=== PATIENT | female | born 1945 | race Caucasian/White ===

== ENCOUNTER 2019-07-12 10:17 | Outpatient (CLI) | payer MEDICARE, OTHER, SELFPAY ==
--- NOTE | 2019-07-12 10:15 | USCV_ITS ---
Khari Calvillo Age: 74 Gender: F : 1945 Exam Date: 07/12/2019 10:27 Ordering Phys: Jocelynn Zimmer Technologist: Mirela Horner Exam Location: [facility] – [place] Indication: fatigue BP: 136 / 62 HR: 61 Rhythm: Sinus Technical Quality: Adequate MEASUREMENTS (Male / Female) Normal Values 2D ECHO LV Diastolic Diameter PLAX 4.3 cm 4.2 - 5.9 / 3.9 - 5.3 cm LV Systolic Diameter PLAX 2.7 cm LV Chamber Size 2.2 cm IVS Diastolic Thickness 1.2 cm 0.6 - 1.0 / 0.6 - 0.9 cm IVS Systolic Thickness 1.5 cm LVPW Diastolic Thickness 1.8 cm 0.6 - 1.0 / 0.6 - 0.9 cm LVPW Systolic Thickness 1.9 cm RV Chamber Size 2.6 cm LVOT Diameter 2.1 cm LV Ejection Fraction 2D Teich 66.7 % LV Ejection Fraction MOD 2C 66.8 % LV Ejection Fraction 2C AL 70.1 % LA Diameter 4.2 cm LA Width 2.0 cm LA Height 4.8 cm RA Width 2.6 cm RA Height 3.7 cm Aorta at Sinotubular Diameter 2.2 cm M-MODE LV Diastolic Diameter MM 5.4 cm 4.2 - 5.9 / 3.9 - 5.3 cm LV Systolic Diameter MM 3.6 cm LV Ejection Fraction MM Teich 60.7 % IVS Diastolic Thickness MM 0.7 cm 0.6 - 1.0 / 0.6 - 0.9 cm IVS Systolic Thickness MM 0.9 cm LVPW Diastolic Thickness MM 0.7 cm 0.6 - 1.0 / 0.6 - 0.9 cm LVPW Systolic Thickness MM 1.3 cm Aortic Annulus Diameter 3.2 cm LA Ao Ratio MM 1.3 MV E Point Septal Separation 0.4 cm DOPPLER AV Peak Velocity 135.0 cm/s LVOT Peak Velocity 102.0 cm/s AV Area Cont Eq vti 2.5 cm squared AV Area Cont Eq pk 2.5 cm squared MV Area PHT 3.1 cm squared Mitral E to A Ratio 1.1 MV E' Velocity 10.0 cm/s Mitral E to MV E' Ratio 8.8 Mitral E to LV E' Lateral Ratio 8.9 Mitral E to LV E' Septal Ratio 8.6 TR Peak Velocity 339.0 cm/s TR Peak Gradient 46.0 mmHg TV Peak E Velocity 51.0 cm/s Right Atrial Pressure 3.0 mmHg Pulmonary Artery Systolic Pressu 49.0 mmHg PV Peak Velocity 51.0 cm/s RV Acceleration Time 0.2 s RV Ejection Time 0.4 s RV AcT/ET 0.5 FINDINGS Left Ventricle Normal left ventricular cavity size. Normal left ventricular systolic function. No regional wall motion abnormalities. Left ventricular ejection fraction is estimated at 60 %. Grade II/IV diastolic dysfunction, moderately elevated filling pressures. Right Ventricle The right ventricle is normal in size and function. Right Atrium The right atrium is normal in size. Left Atrium The left atrium is normal in size. Mitral Valve Moderately thickened mitral valve. No mitral valve stenosis. Aortic Valve Mild aortic valve calcification. No aortic valve stenosis. No aortic valve regurgitation. Tricuspid Valve Structurally normal tricuspid valve without significant stenosis or regurgitation. Pulmonary artery systolic pressure is normal. Pulmonic Valve Structurally normal pulmonic valve without significant stenosis. There is no pulmonic regurgitation. Pericardium Normal pericardium without effusion. Aorta Normal ascending aorta dimension. CONCLUSIONS 1-Normal left ventricular cavity size. Normal left ventricular systolic function. No regional wall motion abnormalities. Left ventricular ejection fraction is estimated at 60 %. Grade II/IV diastolic dysfunction, moderately elevated filling pressures. 2-There is no pericardial effusion. 3-Pulmonary artery systolic pressure is within normal limits. 4-No significant valve abnormalities. 5-Right atrial pressure is around 5 mm of mercury. 6-No significant change since the prior echocardiogram study of 07/01/2017. Hayder Alberts MD (Electronically Signed) Final Date: 12 July 2019 13:47 S
--- NOTE | 2019-07-12 11:00 | USCV_ITS ---
KarliPreciouse Age: 74 Gender: F : 1945 Exam Date: 07/12/2019 10:41 Ordering Phys: Jocelynn Zimmer Technologist: Mirela Horner Exam Location: [facility] [place] Indication: blurring vision Risk Factors: Previous Vascular Surgery: Right Brachial BP: / Left Brachial BP: / Right Left Velocity (cm/s) Spectral Plaque Velocity (cm/s) Spectral Plaque Syst/Diast Broadening Syst/Diast Broadening 97.00/ 17.60 Prox CCA 42.60 / 8.30 79.40/ 17.60 Mid CCA 75.40 / 15.10 56.70/ 15.40 Distal CCA 63.30 / 21.10 41.90/ 15.40 Prox ICA 37.00 / 19.30 55.10/ 16.50 Mid ICA 67.20 / 24.80 78.10/ 33.60 Distal ICA 58.50 / 24.60 76.30 ECA 72.30 0.98 ICA/CCA 0.89 Antegrade Vertebral Antegrade 21.30/ 7.70 cm/s 18.00/ 7.20 cm/s Tri Subclavian Tri 66.30 46.80 FINDINGS Comparison:. 11/04/12. No significant elevation of systolic or diastolic velocities. Waveforms are normal. No significant amount of calcified plaque or intimal thickening identified. CONCLUSIONS No interval change in stenosis since prior exam. Normal carotid doppler ultrasound. Dr. Britany Navarro DO (Electronically Signed) Final Date: 12 July 2019 12:15 S
== END 2019-07-12 10:18 | disposition home or self-care (01) ==
LOC: RAD 10:21
PROVIDERS: Family Provider Family Medicine; PCP Family Medicine; Visit Provider Nurse Practitioner Family
DX: R53.83 Other fatigue (principal); R53.1 Weakness; I10 Essential (primary) hypertension; H53.8 Other visual disturbances; G44.52 New daily persistent headache (NDPH); I65.23 Occlusion and stenosis of bilateral carotid arteries
CPT/HCPCS: 93306; 93880

== ENCOUNTER → 2019-09-29 08:44 | Outpatient (BNVA) | payer MEDICARE, OTHER, SELFPAY | PROVIDERS: Family Provider Family Medicine; PCP Family Medicine; Visit Provider Nurse Practitioner Family | DX: N39.0 Urinary tract infection, site not specified (principal); N39.46 Mixed incontinence | CPT/HCPCS: 81001 ==

== ENCOUNTER 2020-05-25 14:36 | Outpatient (CLI) | payer MEDICARE, OTHER, SELFPAY ==
--- NOTE | 2020-05-25 15:00 | USCV_ITS ---
Khari Calvillo Age: 75 Gender: F : 1945 Exam Date: 05/25/2020 14:47 Ordering Phys: Hayder Alberts MD ([email or web address]) Technologist: Randell Sprague Exam Location: [facility] – [place] Indication: PVD RIGHT LEFT Brachial 132.00 mmHg Brachial 132.00 mmHg Pressure (mmHg) Waveform Pressure (mmHg) Waveform 164.00 Above Knee 162.00 181.00 Below Knee 180.00 188.00 GRAIN ELEVATOR CLERK 173.00 151.00 DPA 138.00 1.42 Ankle/Brachial Index 1.31 103.00 Pre-Exercise Toe Pressure 135.00 0.78 Pre-Exercise Toe/Brachial Index 1.02 FINDINGS Normal resting ABIs bilaterally Normal resting TBIs bilaterally Near normal PVR waveforms CONCLUSIONS No significant arterial obstruction, based on the above finding Dr Kerri Whiteside MD FAC (Electronically Signed) Final Date: 25 May 2020 17:31 S
== END 2020-05-25 14:37 | disposition home or self-care (01) ==
LOC: US 14:36
PROVIDERS: PCP Family Medicine; Visit Provider Internal Medicine Cardiovascular Disease
DX: I73.9 Peripheral vascular disease, unspecified (principal)
CPT/HCPCS: 93923

== ENCOUNTER 2020-09-03 11:41 | Emergency (ER) | payer MEDICARE, OTHER, SELFPAY ==
[2020-09-03 12:17] VITALS: BP 166/83; PULSE 101; RESP 18; TEMP 36.8; O2SAT 94; BMI 33.4
--- NOTE | 2020-09-03 12:25 | XRR_ITS ---
PROCEDURE INFORMATION: Exam: XR Right Ankle Exam date and time: 09/03/2020 12:25 PM Age: 75 years old Clinical indication: Injury or trauma; Fall; Blunt trauma; Ankle; Right TECHNIQUE: Imaging protocol: XR Right ankle. Views: 3 or more views. COMPARISON: No relevant prior studies available. FINDINGS: Bones/joints: There is a fracture of the distal right fibula. No tibial fracture is identified. No dislocation. There is osteopenia. Soft tissues: Normal. XR/XR ankle RT min 3V* [id number] IMPRESSION: There is a fracture of the distal right fibula.
--- NOTE | 2020-09-03 12:53 | ED_ITS ---
HPI - Extremity Problem General: Chief complaint: Extremity Injury, Lower Stated complaint: fall/right leg injury Time Seen by Provider: 09/03/20 12:40 History of Present Illness: HPI Narrative: Patient fell yesterday and woke up with pain in her right calf area and discoloration to her ankle area and foot. Complaint: extremity pain Onset (ago): day(s) Pain Consistency: constant Location: right and lower extremity Severity scale (1-10): 3 Quality: aching Radiation: proximal and distal Relieving factors: immobilization Exacerbating factors: weight bearing Associated symptoms: Reports no associated symptoms; Deny chest pain, fever(s) or rash Review of Systems Const: Denies: fever(s), chills or body aches Eyes: Denies: change in vision or blurry vision ENMT: Denies: throat pain or nasal congestion Card: Denies: chest pain or dyspnea on exertion Resp: Denies: dyspnea, productive cough or non-productive cough GI: Denies: abdominal pain, nausea or vomiting Musc: Reports: extremity pain (Patient tripped going up stairs yesterday and sustained injury to her right) and limited range of motion Skin/Breast: Denies: rash Neuro: Denies: headache(s) Psych: Denies: anxiety or depression Blayne/Lymph: Denies: easy bruising PFSH ED PFSH: Medical History (Updated 02/22/20 @ 18:49 by Hayder Alberts MD) Claudication HTN (hypertension) Mixed incontinence Osteoporosis Polyuria PVCs (premature ventricular contractions) Reactive airway disease Recurrent UTI Surgical History S/P hysterectomy S/P shoulder surgery Family History Other Cancer Diabetes Social History Smoking and tobacco status: never smoked Alcohol intake: never Marital status: Current occupational status: retired History of recent travel: No Physical Exam Const: COMMON NORMALS: no acute distress, average body habitus and patient oriented x3 HENMT: COMMON NORMALS: normocephalic HEAD & SCALP: normal to inspection and normocephalic FACE & SINUS: normal facial exam Eye: COMMON NORMALS: conjunctivae normal GENERAL EYE: appearance normal, both eyes and all related structures CONJUNCTIVA: Yes conjunctivae normal Neck/C-Spine: COMMON NORMALS: no JVD Chest: COMMONS NORMALS: normal inspection of the chest Resp: COMMON NORMALS: normal respiratory effort Cardio: COMMON NORMALS: no JVD GI: COMMON NORMALS: Normal to inspection, nondistended, normoactive bowel sounds present Extremity: RIGHT LOWER EXTREMITY: Yes lower leg (Pain mid calf swelling and discoloration to the right foot no tenderness) Right lower leg: Yes neurovascular exam (Intact) Neuro: COMMON NORMALS: patient oriented x3 Course Vital Signs: Vital signs: Vital Signs Temperature 98.3 F 09/03/20 12:17 Pulse Rate 101 H 09/03/20 12:17 Respiratory Rate 18 09/03/20 12:17 Blood Pressure 166/83 09/03/20 12:17 Pulse Oximetry 94 09/03/20 12:17 Discharge Plan Discharge Prescriptions: No Action atorvastatin 10 mg tablet 10 mg PO DAILY RF: 0 diphenhydramine HCl [Benadryl] 25 mg capsule 25 mg PO TID PRNRF: 0 vitamin E (dl, acetate) 400 unit capsule 400 unit PO DAILY RF: 0 ascorbic acid (vitamin C) 1,000 mg tablet 1,000 mg PO DAILY RF: 0 Bangs Oil 1,000 mg capsule 1 cap PO DAILY RF: 0 Lactobacillus acidophilus [Acidophilus] Capsule 10 mg PO DAILY RF: 0 carica papaya [Papaya Enzyme] Tablet 1 tab PO DAILY RF: 0 naproxen sodium [Aleve] 220 mg tablet 220 mg PO BID PRNRF: 0 acetaminophen [Tylenol Extra Strength] 500 mg tablet 500 mg PO Q6H PRNRF: 0 aspirin [Adult Low Dose Aspirin] 81 mg tablet,delayed release (DR/EC) 81 mg PO DAILY RF: 0 metoprolol succinate 50 mg tablet extended release 24 hr 100 mg PO DAILY RF: 0 omeprazole 20 mg capsule,delayed release(DR/EC) 40 mg PO DAILY RF: 0 escitalopram oxalate 10 mg tablet 5 mg PO DAILY RF: 0 multivitamin Tablet 1 tab PO DAILY RF: 0 verapamil 100 mg capsule, [address] 100 mg PO DAILY Qty: 90 RF: 3 losartan 100 mg tablet 150 mg PO DAILY 90 Days Qty: 90 RF: 3 oxybutynin chloride 15 mg tablet extended release 24hr 15 mg PO DAILY Qty: 30 RF: 12 ciprofloxacin HCl [Cipro] 500 mg tablet 500 mg PO BID Qty: 60 RF: 1 Coding Level of Care Code ED Community Health Advisor for Vianca Donahue
--- NOTE | 2020-09-04 08:08 | DCPLANNER ---
corporate security manager had message to schedule a follow up appointment scheduled for patient with ortho. corporate security manager called the ortho clinic, spoke with Eneida, gave clinic patients information to clinic. corporate security manager was told that patients information would be printed and reviewed. Clinic will call patient with appointment information.
--- NOTE | 2020-09-22 07:27 | DCPLANNER ---
Patient had a follow up appointment scheduled for 09.13.[address] Mcdowell at [facility] - patient did attend appointment.
== END 2020-09-03 14:10 | disposition home or self-care (01) ==
PROVIDERS: Emergency Provider Nurse Practitioner Family; PCP Family Medicine
DX: M79.604 Pain in right leg (principal); Z79.82 Long term (current) use of aspirin; I10 Essential (primary) hypertension
CPT/HCPCS: 29515; 73610; 99283; E0114

== ENCOUNTER → 2020-09-13 10:10 | Outpatient (BNVA) | payer MEDICARE, OTHER, SELFPAY | PROVIDERS: PCP Family Medicine; Referring Provider Nurse Practitioner Family; Visit Provider Specialist | DX: S82.839A Other fracture of upper and lower end of unspecified fibula, initial encounter for closed fracture (principal); X58.XXXA Exposure to other specified factors, initial encounter; Z46.89 Encounter for fitting and adjustment of other specified devices; S82.51XD Displaced fracture of medial malleolus of right tibia, subsequent encounter for closed fracture with routine healing; X58.XXXD Exposure to other specified factors, subsequent encounter | CPT/HCPCS: 73610; 73630; 97760; L4361 ==

== ENCOUNTER 2020-09-13 15:40 | Outpatient (CLI) | payer MEDICARE, OTHER, SELFPAY | END 2020-09-13 15:41 | disposition home or self-care (01) | LOC: SPT 15:42 | PROVIDERS: PCP Family Medicine; Visit Provider Specialist | DX: Z46.89 Encounter for fitting and adjustment of other specified devices (principal); S82.51XD Displaced fracture of medial malleolus of right tibia, subsequent encounter for closed fracture with routine healing; X58.XXXD Exposure to other specified factors, subsequent encounter | CPT/HCPCS: 97760; L4361 ==

== ENCOUNTER → 2020-09-28 08:26 | Outpatient (BNVA) | payer MEDICARE, OTHER, SELFPAY | PROVIDERS: PCP Family Medicine; Visit Provider Specialist | DX: S82.839A Other fracture of upper and lower end of unspecified fibula, initial encounter for closed fracture (principal); S82.53XA Displaced fracture of medial malleolus of unspecified tibia, initial encounter for closed fracture; S82.454A Nondisplaced comminuted fracture of shaft of right fibula, initial encounter for closed fracture; S82.54XA Nondisplaced fracture of medial malleolus of right tibia, initial encounter for closed fracture; S82.409A Unspecified fracture of shaft of unspecified fibula, initial encounter for closed fracture; S82.209A Unspecified fracture of shaft of unspecified tibia, initial encounter for closed fracture; X58.XXXA Exposure to other specified factors, initial encounter | CPT/HCPCS: 73610; 73630 ==

== ENCOUNTER → 2020-10-16 14:53 | Outpatient (BNVA) | payer MEDICARE, OTHER, SELFPAY | PROVIDERS: PCP Family Medicine; Visit Provider Specialist | DX: S82.454A Nondisplaced comminuted fracture of shaft of right fibula, initial encounter for closed fracture (principal); X58.XXXA Exposure to other specified factors, initial encounter | CPT/HCPCS: 73610 ==

== ENCOUNTER → 2020-11-15 15:13 | Outpatient (BNVA) | payer MEDICARE, OTHER, SELFPAY | PROVIDERS: PCP Family Medicine; Visit Provider Urology | DX: N39.0 Urinary tract infection, site not specified (principal) | CPT/HCPCS: 81003 ==

== ENCOUNTER → 2021-02-12 12:11 | Outpatient (BNVA) | payer MEDICARE, OTHER, SELFPAY | PROVIDERS: PCP Family Medicine; Visit Provider Nurse Practitioner Family | DX: Z20.822 Contact with and (suspected) exposure to COVID-19 (principal) | CPT/HCPCS: 87635 ==

== ENCOUNTER → 2022-01-07 14:03 | Outpatient (BNVA) | payer MEDICARE, OTHER, SELFPAY | PROVIDERS: PCP Family Medicine; Visit Provider Internal Medicine Cardiovascular Disease | DX: I10 Essential (primary) hypertension (principal); I49.3 Ventricular premature depolarization; M79.606 Pain in leg, unspecified; R53.83 Other fatigue | CPT/HCPCS: 93005; 93242; 99213; 99214 ==

== ENCOUNTER 2022-02-22 09:00 | Outpatient (CLI) | payer MEDICARE, OTHER, SELFPAY ==
--- NOTE | 2022-02-22 09:30 | USCV_ITS ---
Khari Calvillo Age: 77 Gender: F : 1945 Exam Date: 02/22/2022 09:29 Ordering Phys: Kerri Whiteside MD ([email or web address]) Technologist: CT Exam Location: [facility] [place] Indication: HISTORY: PROCEDURES: Bilateral duplex Venous Insufficiency study of the Deep and Superficial systems was carried out according to normal protocol with the patient in supine positon for deep system and dependent position for the superficial system. FINDINGS: Reflux noted in rt gsv and left gsv. On the left it is only identified in the prx/mid calf The veins were found to be easily compressible with spontaneous blood flow. Non pulsatile flow pattern. CONCLUSIONS 1. Significant venous reflux of greater than 500 ms were noted at the proximal, mid, distal and below-knee saphenous vein segments. However these venous segments were found to be very superficial except the proximal and mid saphenous vein segments. 2. On the left side, Significant venous reflux of greater than 500 ms was noted at the below-knee segment of the greater saphenous vein. However the venous segment was found to be less than 1 cm deep from the surface 3. No DVT was noted. 4. No significant deep venous reflux were noted Dr Kerri Whiteside MD [facility] (Electronically Signed) Final Date: 26 February 2022 21:13 S
== END 2022-02-22 09:01 | disposition home or self-care (01) ==
LOC: RAD 09:02
PROVIDERS: PCP Family Medicine; Visit Provider Internal Medicine Cardiovascular Disease
DX: I87.2 Venous insufficiency (chronic) (peripheral) (principal); M79.606 Pain in leg, unspecified; M79.671 Pain in right foot
CPT/HCPCS: 93970

== ENCOUNTER → 2022-07-16 15:14 | Outpatient (BNVA) | payer MEDICARE, OTHER, SELFPAY | PROVIDERS: PCP Family Medicine; Visit Provider Internal Medicine Cardiovascular Disease | DX: R07.9 Chest pain, unspecified (principal); I10 Essential (primary) hypertension; I49.3 Ventricular premature depolarization; E78.5 Hyperlipidemia, unspecified; Z79.82 Long term (current) use of aspirin | CPT/HCPCS: 99214 ==

== ENCOUNTER → 2023-01-16 09:48 | Outpatient (BNVA) | payer MEDICARE, OTHER, SELFPAY | PROVIDERS: PCP Family Medicine; Visit Provider Internal Medicine Cardiovascular Disease | DX: I10 Essential (primary) hypertension (principal); I49.3 Ventricular premature depolarization; E78.5 Hyperlipidemia, unspecified; I87.2 Venous insufficiency (chronic) (peripheral) | CPT/HCPCS: 99214 ==

== ENCOUNTER → 2023-09-16 09:58 | Outpatient (BNVA) | payer MEDICARE, OTHER, SELFPAY | PROVIDERS: PCP Family Medicine; Visit Provider Specialist | DX: R20.0 Anesthesia of skin (principal); R20.2 Paresthesia of skin; G56.03 Carpal tunnel syndrome, bilateral upper limbs | CPT/HCPCS: 95910 ==

== ENCOUNTER → 2023-11-18 15:12 | Outpatient (BNVA) | payer MEDICARE, OTHER, SELFPAY | PROVIDERS: PCP Family Medicine; Visit Provider Internal Medicine Cardiovascular Disease | DX: R07.9 Chest pain, unspecified (principal); I10 Essential (primary) hypertension; I49.3 Ventricular premature depolarization; E78.5 Hyperlipidemia, unspecified; I87.2 Venous insufficiency (chronic) (peripheral); Z98.61 Coronary angioplasty status | CPT/HCPCS: 93005; 99214 ==

== ENCOUNTER 2023-12-19 09:24 | Outpatient (CLI) | payer MEDICARE, OTHER, SELFPAY ==
[2023-12-19 09:51] VITALS: BMI 35.7
--- NOTE | 2023-12-19 10:02 | ECG_ITS ---
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 Interpretive Statements PROCEDURE: At the baseline, the EKG revealed normal sinus rhythm with a normal ST Ts. The baseline heart was 63 bpm with a blood pressue of 154/84 mm of Hg Lexiscan was infused over a period of 20 seconds. A total of 0.4 milligrams of Lexiscan was infused. The stress phase was continued for a total of 5 minutes. Heart rate at the end of the stress phase was 89 bpm with a blood pressure 145/70 mm of Hg. The EKG at the peak infusion revealed no significant changes. Sestamibi was injected 20 seconds after the Lexiscan infusion. Heart rate at the end of the recovery phase was 82 bpm with a blood pressure of 150/78 mm of Hg. CONCLUSION: 1. No significant EKG changes with the LexiScan infusion 2. No LexiScan induced chest pain or cardiac arrhythmia 3. Normal blood pressure and heart rate response 4. Sestamibi/Sestamibi perfusion scan pending; see separate report. Lung unchanged pre/post procedure Intraprocedure shortess of breath Symptoms resoled by discharge Electronically Signed On 12-28-2023 19:04:28 CDT by Kerri Whiteside M.D. [email or web address]
--- NOTE | 2023-12-19 10:03 | NMCV_ITS ---
NM abdiel perf SPECT r/s* [id number] Khari Calvillo Age: 78 Gender: F : 1945 Exam Date: 12/19/2023 10:03 Ordering Phys: Kerri Whiteside MD ([email or web address]) Technologist: NASIR Westfall Exam Location: [facility] Indications: CP STRESS TEST [facility] IMAGE PROTOCOL Rest/Stress 1 Lexiscan Day Radiopharmaceutical Dose (mCi) Administration Site Administered by Rest: Tc-99m 10.2 IV NASIR Platt Sestamibi Stress:Tc-99m 33.0 IV NASIR Storey Sestamibi Rest: 19-Dec-2023 60 Discovery 630 Stress: 19-Dec-2023 30 Discovery 630 0.4mg Lexiscan. Images obtained in supine and prone position. SPECT RESULTS Technical Quality: Good Raw Data Analysis: Breast attenuation Image Corrections: No attenuation or motion correction applied Summed Stress Score: 0 Summed Rest Score: 1 Summed Difference Score: 0 PERFUSION FINDINGS Fairly uniform myocardial tracer uptake with no significant Perfusion normalities. FUNCTIONAL RESULTS (calculated via Gated SPECT) Stress Image LV EF (%): 77 Stress EDV (mL):70 TID: 0.89 Stress ESV (mL):16 FUNCTIONAL FINDINGS: Segmental wall motion analysis revealing no gross wall motion abnormalities IMPRESSIONS 1. Myocardial perfusion imaging revealing fairly uniform myocardial tracer uptake with no significant Perfusion abnormalities. 2. Normal LV ejection fraction of 77%. 3. LV wall motion analysis revealing no gross wall motion abnormalities. 4. Normal LV volume Low probability for coronary ischemia, based on the above findings. No similar previous studies are available for comparison Dr Kerri Whiteside MD [facility] (Electronically Signed) Final Date: 19 December 2023 13:48 S
[2023-12-19] MEDS: regadenoson 0.4 Mg/5 ml Syringe IVP (11:37)
[2023-12-19 12:13] VITALS: BP 142/64; PULSE 62
== END 2023-12-19 09:25 | disposition home or self-care (01) ==
PROVIDERS: PCP Family Medicine; Visit Provider Internal Medicine Cardiovascular Disease
DX: Z98.61 Coronary angioplasty status (principal)
CPT/HCPCS: 36415; 78452; 93017; 96374; A9500; J2785

== ENCOUNTER → 2024-06-23 13:48 | Outpatient (BNVA) | payer MEDICARE, OTHER, SELFPAY | PROVIDERS: PCP Family Medicine; Visit Provider Internal Medicine Cardiovascular Disease | DX: I10 Essential (primary) hypertension (principal); I49.3 Ventricular premature depolarization; E78.5 Hyperlipidemia, unspecified; I87.2 Venous insufficiency (chronic) (peripheral); Z87.891 Personal history of nicotine dependence | CPT/HCPCS: 99214 ==

== ENCOUNTER → 2024-12-21 14:38 | Outpatient (BNVA) | payer MEDICARE, OTHER, SELFPAY | PROVIDERS: PCP Family Medicine; Visit Provider Nurse Practitioner Family | DX: I87.2 Venous insufficiency (chronic) (peripheral) (principal); I73.9 Peripheral vascular disease, unspecified; I10 Essential (primary) hypertension; E78.5 Hyperlipidemia, unspecified; I49.3 Ventricular premature depolarization; I75.023 Atheroembolism of bilateral lower extremities | CPT/HCPCS: 99214 ==

== ENCOUNTER 2024-12-24 09:08 | Outpatient (CLI) | payer MEDICARE, OTHER, SELFPAY ==
--- NOTE | 2024-12-24 09:30 | USR_ITS ---
PROCEDURE INFORMATION: Exam: US Duplex Lower Extremity Veins, Bilateral Exam date and time: 12/24/2024 9:57 AM Age: 79 years old Clinical indication: Other: Dusky feet; Additional info: Dusky feet, cool touch TECHNIQUE: Imaging protocol: Real-time duplex ultrasound of the bilateral extremities with 2-D millan scale, color Doppler flow and spectral waveform analysis including responses to compression and other maneuvers (when performed) with image documentation. Complete exam focused on the lower extremity veins. COMPARISON: No relevant prior studies available. FINDINGS: Right deep veins: Unremarkable. The common femoral, femoral and popliteal veins are patent without thrombus. Normal Doppler waveforms. Normal compressibility and/or augmentation response. Left deep veins: Unremarkable. The common femoral, femoral and popliteal veins are patent without thrombus. Normal Doppler waveforms. Normal compressibility and/or augmentation response. Superficial veins: Greater saphenous veins at the saphenofemoral junctions are patent bilaterally without thrombus. Soft tissues: Unremarkable. US/CV helga dup insuff [facility] [id number] IMPRESSION: No sonographic evidence of deep venous thrombosis.
== END 2024-12-24 09:09 | disposition home or self-care (01) ==
LOC: RAD 09:09
PROVIDERS: PCP Family Medicine; Visit Provider Nurse Practitioner Family
DX: I87.2 Venous insufficiency (chronic) (peripheral) (principal); I75.023 Atheroembolism of bilateral lower extremities
CPT/HCPCS: 93970

== ENCOUNTER 2024-12-29 13:53 | Outpatient (CLI) | payer MEDICARE, OTHER, SELFPAY ==
--- NOTE | 2024-12-29 14:15 | USR_ITS ---
PROCEDURE INFORMATION: Exam: US Duplex Bilateral Lower Extremity Arteries Exam date and time: 12/29/2024 2:30 PM Age: 79 years old Clinical indication: Other: Claudication; Additional info: Dusky feet, cool TECHNIQUE: Imaging protocol: Real-time ultrasound scan of the arteries of the bilateral lower extremities with 2-D millan scale, color Doppler flow and spectral waveform analysis. Images documented and saved. COMPARISON: [place] [id number] 12/24/2024 9:57 AM FINDINGS: Right common femoral artery: No occlusion or significant stenosis. Normal triphasic waveform. Peak systolic velocity is 101 cm/sec. Right superficial femoral artery: No occlusion or significant stenosis. Normal triphasic waveform. Proximal peak systolic velocity is 102 cm 2nd. Distal peak systolic velocity is 66 cm/sec. Right popliteal artery: No occlusion or significant stenosis. Normal triphasic waveform. Peak systolic velocity is 56 cm/sec. Right calf/foot arteries: No occlusion or significant stenosis in the visualized arteries. There are biphasic waveforms within the posterior tibial artery in dorsal pedis artery. Dorsalis pedis artery is patent. Right JEAN 1.12 Left common femoral artery: No occlusion or significant stenosis. Normal triphasic waveform. Peak systolic velocity is 67 cm/sec. Left superficial femoral artery: No occlusion or significant stenosis. Normal triphasic waveform. Proximal peak systolic velocity is 96 cm/sec. Distal peak systolic velocity is 57 cm/sec. Left popliteal artery: No occlusion or significant stenosis. Normal triphasic waveform. Peak systolic velocity is 56 cm/sec. Left calf/foot arteries: No occlusion or significant stenosis in the visualized arteries. There are biphasic waveforms within the posterior tibial artery and dorsal pedis artery. Dorsalis pedis artery is patent. Left JEAN 1.13 US/[place] [id number] IMPRESSION: No sonographic evidence of significant stenosis.
== END 2024-12-29 13:54 | disposition home or self-care (01) ==
LOC: RAD 13:54
PROVIDERS: PCP Family Medicine; Visit Provider Nurse Practitioner Family
DX: I73.9 Peripheral vascular disease, unspecified (principal); I87.2 Venous insufficiency (chronic) (peripheral)
CPT/HCPCS: 93925